=== PATIENT | male | born 1955 | race Caucasian/White ===

== ENCOUNTER → 2020-08-31 | Outpatient (CLI) | payer MEDICARE | LOC: COL.RAD 12:11 | DX: Z00.00 Encounter for general adult medical examination without abnormal findings (principal); Z13.6 Encounter for screening for cardiovascular disorders ==

== ENCOUNTER 2023-08-26 12:11 | Inpatient (IN) | payer MEDICARE ==
[~2023-08-26] VITALS: Ht 177.8 cm; Wt 94.9 kg
--- NOTE | 2023-08-26 12:22 | NUR ---
1050- DR. BRUCE FROM [place] CALLED REQUESTING TO SPEAK WITH DR. LEON TO DETERMINE IF PATIENT NEEDED TO BE TRANSFERRED TO [facility] FOR HIGHER LEVEL 0F CARE FOR PANCREATITIS WITH GALLSTONES. DR. LEON SAID PATIENT COULD TRANSFER HERE FOR A POSSIBLE ERCP, BUT HE WOULD LIKE HOSPITALIST TO ADMIT. DR. BRUCE CALL THEN TRANSFERRED TO DR. JULIO WHO ACCEPTS PATIENT TO TRANSFER HERE FOR INPATIENT STATUS ON THE SURGICAL FLOOR. PER [place], PATIENT WILL BE COMING VIA POV.
--- NOTE | 2023-08-26 13:15 | NUR ---
PT UP TO FLOOR AT THIS TIME WITH STEADY GAIT AND AT BEDSIDE. PT REPORT PAIN 3/10 IN ABDOMEN, PT ON RA, IV TO RIGHT AC INT. PT A/O X4. DR JULIO AND NIYA NOTIFIED OF PT ARRIVAL. NO NEW ORDERS AT THIS TIME, WILL CONTINUE TO MONITOR.
[2023-08-26 13:23] VITALS: BP 162/92; PULSE 73; TEMP 98.1
[2023-08-26] MEDS ORDERED: FLOMAX 0.40.4 MG/CAP PO (13:45)
[2023-08-26] MEDS ORDERED: ZESTRIL 10MG10 MG PO (13:46)
[2023-08-26] MEDS ORDERED: ZYLOPRIM 100MG100 MG PO (13:46)
[2023-08-26] MEDS ORDERED: oxyCODONE 5 MG TAB PO PRN (14:00)
[2023-08-26] MEDS ORDERED: NS 1,000 ML IV SCH (14:00)
[2023-08-26] MEDS ORDERED: Ondansetron 4 MG/2 ML VIAL IV PRN (14:00)
[2023-08-26] MEDS ORDERED: Morphine 4 MG/ML VIAL IV PRN (14:00)
[2023-08-26] MEDS ORDERED: Lisinopril 10 MG TAB PO SCH (14:00)
[2023-08-26] MEDS ORDERED: hydrALAZINE 20 MG/ML 1 ML VIAL IV PRN (14:15)
[2023-08-26 15:36] VITALS: BP 142/87; PULSE 73; TEMP 98.2
[2023-08-26 16:09] VITALS: BP_SYST 142
[2023-08-26 17:03] VITALS: BP_SYST 142
[2023-08-26 19:43] VITALS: BP 138/82; PULSE 83; TEMP 98.3
--- NOTE | 2023-08-26 20:30 | NUR ---
PT A&O X4 LAYING IN BED. VSS. PT RATING ABD PAIN A 1-2, STATES PRN PAIN MED GIVEN ON PRIOR SHIFT HELPED A LOT. DENIES N/V. NS @ 100ML/HR INFUSING TO RT AC. PT EDUCATED ON NPO AT MIDNIGHT. DENIES FURTHER NEEDS. CALL LIGHT IN REACH
[2023-08-26 20:56] VITALS: BP_SYST 138
[2023-08-27] VITALS (11 sets, daily range): BP systolic 116–141; BP diastolic 75–82; PULSE 81–100; TEMP 98.1–98.3
--- NOTE | 2023-08-27 06:15 | NUR ---
PT RESTING IN BED WITH UNLABORED RESP. DENIES NEED FOR PAIN MEDS THIS MORNING. CALL LIGHT IN REACH
[2023-08-27] MEDS ORDERED: Indocyanine Green 6.25 MG in Water For Injection,Sterile 1.25 ML IV SCH (07:00)
[2023-08-27] MEDS ORDERED: droPERidol 2.5 MG/ML 2 ML VIAL IV PRN (07:30)
[2023-08-27] MEDS ORDERED: HYDROmorphone 1 MG/1 ML SYRINGE [PACU/SDC ONLY] IV PRN (07:30)
[2023-08-27] MEDS ORDERED: Ondansetron 4 MG/2 ML VIAL IV PRN ×2 (07:30→09:00)
[2023-08-27] MEDS ORDERED: fentaNYL 50 MCG/ML 1 ML SYRINGE/VIAL [PACU/SDC ONLY] IV PRN (07:30)
--- NOTE | 2023-08-27 07:30 | NUR ---
PT RESTING IN BED WITH PAIN 2/10 IN ABDOMEN ONLY WHEN PRESSURE APPLIED. STEADY GAIT TO BATHROOM AND AT BEDSIDE. PT READY FOR SURGEY AND TAKEN DOWN AT THIS TIME.
[2023-08-27] MEDS ORDERED: Lidocaine PF 2% (20 MG/ML) 5 ML VIAL ONE (07:33)
[2023-08-27] MEDS ORDERED: fentaNYL 50 MCG/ML 5 ML VIAL ONE (07:33)
[2023-08-27] MEDS ORDERED: Iohexol 350 - 100 ML VIAL BILE DUCT ONE ×2 (07:35)
[2023-08-27] MEDS ORDERED: Atracurium 50 MG/5 ML VIAL IV ONE (07:36)
[2023-08-27] MEDS ORDERED: dexAMETHasone 10 MG/ML VIAL ONE (08:04)
[2023-08-27] MEDS ORDERED: diphenhydrAMINE 50 MG/ML 1 ML VIAL ONE (08:16)
[2023-08-27] MEDS ORDERED: Ondansetron 4 MG/2 ML VIAL ONE (08:34)
[2023-08-27 08:47] LABS: BASO % 0.2 % (0.0-2.0); EOS % 0.2 % (0.0-4.0); GRAN # 10.2 K/mm3 (1.4-6.5); GRAN % 84.4 % (42.2-75.2); HEMATOCRIT 41.7 % (42.0-52.0); HEMOGLOBIN 14.8 g/dl (13.5-18.0); LYMPH # 0.9 K/mm3 (1.2-3.4); LYMPH % 7.2 % (20.0-51.0); MEAN CELL VOLUME 92 fl (80.0-100.0); MEAN CORPUSCULAR HEMOGLOBIN 33 pg (27-31); MEAN CORPUSCULAR HGB CONC 36 g/dl (33.0-37.0); MEAN PLATELET VOLUME 10.5 fl (7.4-10.4); MONO # 0.9 K/mm3 (0.1-0.6); MONO % 7.7 % (1.7-9.3); PLATELET COUNT 129 K/mm3 (130-400); RED BLOOD COUNT 4.52 M/mm3 (4.20-5.60)
[2023-08-27] MEDS ORDERED: LR 1,000 ML IV ONE (08:47)
[2023-08-27] MEDS ORDERED: Allopurinol 100 MG TAB PO SCH (09:00)
[2023-08-27] MEDS ORDERED: Acetaminophen 325 MG TAB PO PRN (09:00)
[2023-08-27] MEDS ORDERED: Ibuprofen 600 MG TAB PO PRN (09:00)
[2023-08-27] MEDS ORDERED: NORCO 325 MG-51 TAB PO (09:02)
[2023-08-27 09:15] LABS: ALBUMIN 3.2 g/dL (3.4-4.8); BILIRUBIN,TOTAL 1.5 mg/dL (0.2-1.2); CALCIUM 8.7 mg/dL (8.4-10.2); CREATININE, serum 1.2 mg/dL (0.72-1.25); TOTAL PROTEIN 6.2 g/dl (6.2-8.1)
--- NOTE | 2023-08-27 09:40 | NUR ---
PT UP TO THE FLOOR AT THIS TIME. PT A/OX4, LAP SITES X4 CLEAN AND DRY TO SKIN GLUE, FAMILY AT BEDSIDE, TOLERATING ICE CHIPS, VITALS STABLE ON 3L NC. NO NEEDS AT THIS TIME, WILL COTINUE TO MONITOR.
[2023-08-27 10:02] LABS: MAGNESIUM 1.7 mg/dL (1.6-2.6)
--- NOTE | 2023-08-27 11:09 | NUR ---
[employer] met with patient's and daughter in room to discuss discharge planning. Patient currently in surgery. Thuy ([phone]) verified that she and patient live in [facility], daughter Leyla Anderson ([phone]) listed as contact. Patient sees Dr. Britany Tanner as his PCP and uses [facility] pharmacy for immediate pharmacy needs. They use [facility] out of [facility] for mail order medications. Patient is independent and uses no DME per report. Plan if for patient to discharge to home after surgery. Daughter inquired about patient completing a DPOA. SW will return to room to assist in completing document. Discharge plan: Home
[2023-08-27] MEDS ORDERED: ZOFRAN 4MG T4 MG/TAB PO (12:18)
--- NOTE | 2023-08-27 13:10 | NUR ---
DISCHARGE PROVIDED TO PT AND FAMILY. DISCUSSED FOLLOW UP APPOINTMENT, SIGNS OF INFECTION, AND NEW MEDICATION. NO QUESTIONS AT THIS TIME. IV REMOVED. PT AND BELONGINGS ESCORTED OUT OF BUILDING.
== END 2023-08-27 13:11 | disposition home or self-care (01) | DRG 419 ==
LOC: SURG 12:11
PROVIDERS: Surgery; ADMIT Internal Medicine
PROC: 8E0W4CZ Robotic Assisted Procedure of Trunk Region, Percutaneous Endoscopic Approach (ICD-10-PCS; 2023-08-27)
PROC: 0FT44ZZ Resection of Gallbladder, Percutaneous Endoscopic Approach (ICD-10-PCS; principal; 2023-08-27 08:00)
DX: K85.10 Biliary acute pancreatitis without necrosis or infection (principal); I12.9 Hypertensive chronic kidney disease with stage 1 through stage 4 chronic kidney disease, or unspecified chronic kidney disease; N18.30 Chronic kidney disease, stage 3 unspecified; K21.9 Gastro-esophageal reflux disease without esophagitis; N40.0 Benign prostatic hyperplasia without lower urinary tract symptoms; M10.9 Gout, unspecified; Z79.899 Other long term (current) drug therapy; Z88.1 Allergy status to other antibiotic agents
CPT/HCPCS: J0690; J1100; J1200; J2405; J2704; J3010; J7030; J7120; Q9967